=== PATIENT | female | born 2000 | race Two or more races ===

== ENCOUNTER 2019-04-04 21:04 | Emergency (ER) | payer OTHER ==
[~2019-04-04] VITALS: Ht 167.6 cm; Wt 68.0 kg
[2019-04-04 22:17] LABS: Urine WBC None Seen /hpf (0 - 5)
[2019-04-04 22:38] LABS: Basophils # (auto) 0.1 uL; Basophils % (auto) 0.8 % (0.0-2.0); Eosinophils # (auto) 0.3 uL; Eosinophils % (auto) 3.4 % (0.0-7.0); Hematocrit 43.8 % (36.0-46.0); Hemoglobin 14.7 g/dL (12.2-16.2); Lymphocytes # (auto) 2.6 uL; Lymphocytes % (auto) 27.2 % (10.0-50.0); Mean Corpuscular Hemoglobin 27.6 pg (28.0-32.0); Mean Corpuscular Hgb Conc. 33.5 g/dL (32.0-36.0); Mean Corpuscular Volume 82.3 fL (80.0-100.0); Monocytes # (auto) 0.8 uL; Monocytes % (auto) 8.2 % (0.0-12.0); Neutrophils # (auto) 5.7 uL; Neutrophils % (auto) 60.4 % (37.0-80.0); Platelet Count (auto) 272 10^3/uL (140-450); Red Blood Cells 5.32 10^6/uL (4.0-5.20); Red Cell Distribution Width 14.2 % (11.8-14.3); White Blood Cell 9.4 10^3/uL (4.4-10.8)
[2019-04-04 22:51] LABS: Alanine Aminotransferase 97 U/L (13-56); Anion Gap 6 (5-15); Blood Urea Nitrogen 14 mg/dL (7-18); Calcium 9.1 mg/dL (8.5-10.1); Carbon Dioxide 29 mmol/L (21-32); Chloride 106 mmol/L (98-107); Glucose 139 mg/dL (74-106); Magnesium 2.3 mg/dL (1.6-2.6); Potassium 3.6 mmol/L (3.5-5.1); Sodium 141 mmol/L (136-145)
[2019-04-04 22:54] LABS: INR < 0.93 (0.9-1.15); Partial Thromboplastin Time 28.8 sec (23.64-32.05)
[2019-04-04 22:56] LABS: Alkaline Phosphatase 97 U/L (45-117); Aspartate Aminotransferase 56 U/L (15-37); BUN/Creatinine Ratio 16.7; Bilirubin, Total 0.3 mg/dL (0.2-1.0); GFR African American 112 mL/min; GFR Non-African American 93 mL/min; Total Protein 7.9 g/dL (6.4-8.2)
[2019-04-04 23:02] LABS: Urine Bacteria FEW /hpf (None Seen); Urine Blood 1+ /uL (Negative); Urine Specific Gravity 1.027 (1.001-1.035)
[2019-04-05] MEDS ORDERED: AMOXICILLIN/CLAVULAN 500 MG TAB PO ONE (07:30)
[2019-04-05 07:37] VITALS: BP 99/59
== END 2019-04-05 07:54 | disposition home or self-care (01) ==
LOC: ER 21:08
DX: J32.9 Chronic sinusitis, unspecified (principal)
CPT/HCPCS: 36415; 70450; 71046; 80053; 81001; 81025; 83735; 84484; 85025; 85610; 85730; 93005